=== PATIENT | male | born 1990 | race Hispanic/Latino ===

== ENCOUNTER 2023-04-27 11:18 | Emergency (ER) | payer SELFPAY ==
[2023-04-27] VITALS (7 sets, daily range): BP systolic 115–142; BP diastolic 67–94
[~2023-04-27] VITALS: Ht 167.6 cm; Wt 74.8 kg
[2023-04-27] MEDS ORDERED: KETOROLAC TROMETHAMINE 30 MG/ML SDV IV ONE (12:55)
[2023-04-27 13:30] LABS: BASO% 0.3 % (0-3); EOS% 0.9 % (0-8); HEMATOCRIT 48.4 % (39.0-50.0); HEMOGLOBIN 17.2 g/dl (14.0-18.0); IMMATURE GRANULOCYTES 0.1 % (0.0-5.0); LYMPH% 17.5 % (15-41); MEAN CELL VOLUME 90.6 fL CALC (80.0-100.0); MEAN CORPUSCULAR HGB 32.2 pG CALC (26.0-32.0); MEAN CORPUSCULAR HGB CONC 35.5 g/dL CAL (32.0-36.0); MONO% 7.3 % (2-13); NEUT# 6.76 thou/uL (1.82-7.42); NEUT% 73.9 % (42-76); RED BLOOD COUNT 5.34 mill/uL (4.70-6.10); RED CELL DISTRI WIDTH 12.3 % (11.5-15.5)
[2023-04-27 13:47] LABS: ALBUMIN 4.4 g/dL (3.2-5.0); ALKALINE PHOSPHATASE 51 u/l (38-126); ANION GAP 11 (6-22 (CALC)); BUN 5 mg/dL (9-20); BUN/CREATININE RATIO 7 (12-20 (CALC)); CARBON DIOXIDE 26 mmol/l (22-30); CHLORIDE 104 mmol/l (95-108); CREATININE 0.8 mg/dL (0.7-1.3); GFR FOR AFR.AMER. > 60 ML/MIN (>=60 (CALC)); GFR OTHER RACES > 60 ML/MIN (>=60 (CALC)); POTASSIUM 3.7 mmol/l (3.5-5.1); SGOT/AST 40 u/l (17-59); SODIUM 138 mmol/l (137-146); TOTAL PROTEIN 7.7 g/dL (6.3-8.2)
[2023-04-27] MEDS ORDERED: predniSONE 20 MG/TAB PO ONE (14:50)
[2023-04-27] MEDS ORDERED: PREDNISONE20 MG PO (14:54)
[2023-04-27] MEDS ORDERED: COLCHICINE0.6 M2 PO (14:54)
== END 2023-04-27 16:01 | disposition home or self-care (01) | DRG 554 ==
LOC: ED 11:18
PROVIDERS: Family Medicine
DX: M10.071 Idiopathic gout, right ankle and foot (principal); F17.210 Nicotine dependence, cigarettes, uncomplicated